=== PATIENT | male | born 2000 | race Caucasian/White ===

== ENCOUNTER 2019-08-19 21:02 | Emergency (ER) | payer BC ==
[2019-08-19 21:14] VITALS: TEMP 97.9; O2SAT 97
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
[2019-08-19 22:08] VITALS: BP 121/68
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
== END 2019-08-19 22:20 | disposition home or self-care (01) ==
LOC: ER 21:02
DX: S63.91XA Sprain of unspecified part of right wrist and hand, initial encounter (principal); V86.96XA Unspecified occupant of dirt bike or motor/cross bike injured in nontraffic accident, initial encounter; Y92.9 Unspecified place or not applicable